=== PATIENT | female | born 1950 | race Caucasian/White ===

== ENCOUNTER 2018-12-27 12:06 | Observation (INO) | payer MEDICARE, OTHER ==
[~2018-12-27] VITALS: Ht 167.6 cm; Wt 81.7 kg
[2018-12-27 12:35] LABS: BASOPHILS ABSOLUTE AUTO 0.05 K/mm3 (0.00-0.23); BASOPHILS PERCENT AUTO 1 % (0-2); EOSINOPHILS ABSOLUTE AUTO 0.28 K/mm3 (0.00-0.68); EOSINOPHILS PERCENT AUTO 5 % (0-6); Hematocrit 41.9 % (33.0-51.0); IMMATURE GRAN ABSOLUTE AUTO 0.01 K/mm3 (0.00-0.10); IMMATURE GRAN PERCENT AUTO 0 % (0-1); LYMPHOCYTES ABSOLUTE AUTO 1.98 K/mm3 (0.84-5.20); LYMPHOCYTES PERCENT AUTO 38 % (21-46); MONOCYTES ABSOLUTE AUTO 0.51 K/mm3 (0.16-1.47); MONOCYTES PERCENT AUTO 10 % (4-13); Mean Corpuscular HGB 29.6 pg (26.0-34.0); Mean Corpuscular HGB Conc 33.4 g/dL (31.5-36.5); Mean Corpuscular Volume 89 fL (80-100); Mean Platelet Volume 9.2 fL (9.1-12.4); NEUTROPHILS ABSOLUTE AUTO 2.38 K/mm3 (1.96-9.15); NEUTROPHILS PERCENT AUTO 46 % (41-73); Platelet Count 341 K/mm3 (150-400); RDW Coefficient Variation 12.6 % (11.7-14.2); RDW Standard Deviation 40.6 fL (35.1-46.3); Red Blood Cell Count 4.73 M/mm3 (3.80-5.20); White Blood Cell Count 5.21 K/mm3 (4.00-11.30)
[2018-12-27] MEDS ORDERED: CELE200 PO (13:19)
[2018-12-27] MEDS ORDERED: ANAS1 PO (13:19)
[2018-12-27] MEDS ORDERED: LEVSOD150 PO (13:19)
[2018-12-27] MEDS ORDERED: OMEPRAZOLE MAGN20 MG PO (13:19)
[2018-12-27] MEDS ORDERED: GUAI600T33 PO (13:20)
[2018-12-27] MEDS ORDERED: ALLEGRA ALLERG180 MG PO (13:21)
[2018-12-27] MEDS ORDERED: Zantac150 MG PO (13:22)
[2018-12-27] MEDS ORDERED: Vitamin D2000 UNIT PO (13:23)
[2018-12-27] MEDS ORDERED: DIPH50 PO (13:23)
[2018-12-27] MEDS ORDERED: MONT10T PO (13:23)
[2018-12-27] MEDS ORDERED: MAGOXI400 PO (13:24)
[2018-12-27] MEDS ORDERED: CALCIUM-MAGNES1 EAC2 PO (13:24)
[2018-12-27] MEDS ORDERED: Meribin5 MG PO (13:25)
[2018-12-27] MEDS ORDERED: Co Q-10100 MG PO (13:25)
[2018-12-27] MEDS ORDERED: TURMERIC500 M2 PO (13:31)
[2018-12-27] MEDS ORDERED: HYALURONIC ACI1 EACH PO (13:32)
[2018-12-27 14:13] LABS: Troponin I <0.015 ng/mL (0.000-0.040)
[2018-12-27 14:14] LABS: Alanine Aminotransfer (ALT/SGP 30 U/L (12-78); Albumin, Blood 3.9 g/dL (3.4-5.0); Albumin/Globulin Ratio 1.2 (0.8-1.8); Alk Phos 60 U/L (50-136); Anion Gap 7 mmol/L (6-16); Aspartate Aminotrans (AST/SGOT 24 U/L (12-37); Bilirubin, Total 0.3 mg/dL (0.1-1.0); Blood Urea Nitrogen 13 mg/dL (8-24); Bun/Creatinine Ratio 12.5 (12.0-20.0); CO2, Blood 24 mmol/L (21-32); Calcium, Blood 8.8 mg/dL (8.5-10.1); Chloride, Blood 107 mmol/L (98-108); Creatinine, Blood 1.04 mg/dL (0.40-1.00); Globulin, Blood 3.2 g/dL (2.2-4.0); Glomerular Filtration Rate 56 (60-); Glucose, Blood 109 mg/dL (70-99); Potassium, Blood 4.4 mmol/L (3.5-5.5); Sodium, Blood 138 mmol/L (136-145); Total Protein, Blood 7.1 g/dL (6.4-8.2)
--- NOTE | 2018-12-27 16:58 | NUR ---
SHIFT SUMMARY PATIENT TO THE FLOOR 1515. PATIENT IS ALERT AND ORIENTED INDEPENENDENT IN THE ROOM. AWAITING FURTHER RESULTS. SHE WILL HAVE A LEXISCAN TOMORROW AND FURTHER RESULTS WILL BE EXPLAINED TO THE PATIENT THEY ARE AVAILABLE. THEY ARE RUNNING 2 MORE TROPONINS AND CK WITH [facility]. WILL ASSESS FOR ANY CHANGES. PATIENTS CURRENT COMPLAINT IS THE HEADACHE FROM THE NITRO TAB GIVEN BY EMS.
[2018-12-27 20:43] LABS: CPK Creatine Kinase 73 U/L (26-193); Troponin I <0.015 ng/mL (0.000-0.040)
[2018-12-27 20:49] LABS: Creatine Kinase MB <1.0 ng/mL (0.0-3.6); Creatine Kinase MB Index Unable to Calculate (0.0-4.0)
--- NOTE | 2018-12-28 04:25 | NUR ---
SHIFT SUMMARY A/O, ABLE TO MAKE NEEDS KNOWN. COOPERATIVE WITH CARE. CALLS AND ANSWERS QUESTIONS APPROPRIATELY. NO C/O PAIN/DISCOMFORT THIS SHIFT. APPEARED TO REST MUCH OF SHIFT. UP INDEPENDENTLY IN ROOM. NO ACUTE CHANGES OVERNIGHT. VSS/AFEBRILE. REQUESTED LAB RESULTS. SHOWED PATIENT LABS AND EXPECTED VALUES AND WHERE HER VALUES FELL. EXPLAINED TO HER THAT IF SHE HAD FURTHER QUESTIONS ABOUT INTERPRETATIONS SHE WOULD NEED TO DISCUSS THAT WITH THE ATTENDING PHYSICIAN. PATIENT NPO @ 0400 EXCEPT MEDS/ICE CHIPS PER ORDER . SCD'S REMAINED IN PLACE. BED IN LOWEST POSITION. CALL LIGHT AND BELONGINGS WITHIN REACH. WCTM. REPORT TO ONCTUAN RN.
[2018-12-28 04:43] LABS: Hemoglobin 13.7 g/dL (11.5-16.0); Mean Corpuscular HGB 29.5 pg (26.0-34.0); Mean Corpuscular HGB Conc 33.4 g/dL (31.5-36.5); Mean Corpuscular Volume 88 fL (80-100); Mean Platelet Volume 9.2 fL (9.1-12.4); Platelet Count 338 K/mm3 (150-400); RDW Coefficient Variation 12.5 % (11.7-14.2); RDW Standard Deviation 40.2 fL (35.1-46.3); Red Blood Cell Count 4.65 M/mm3 (3.80-5.20); White Blood Cell Count 4.94 K/mm3 (4.00-11.30)
[2018-12-28 04:59] LABS: Anion Gap 7 mmol/L (6-16); Blood Urea Nitrogen 14 mg/dL (8-24); Bun/Creatinine Ratio 15.3 (12.0-20.0); CHOL/HDL RATIO 4.5; CO2, Blood 24 mmol/L (21-32); Calcium, Blood 8.7 mg/dL (8.5-10.1); Chloride, Blood 110 mmol/L (98-108); Cholesterol 234 mg/dL (50-200); Creatinine, Blood 0.92 mg/dL (0.40-1.00); Glomerular Filtration Rate >60 (60-); Glucose, Blood 101 mg/dL (70-99); HDL Cholesterol 52 mg/dL (>39); LDL/HDL RATIO 2.9; Low Density Lipoprotein Chol 150 mg/dL (0-110); Potassium, Blood 3.9 mmol/L (3.5-5.5); Sodium, Blood 141 mmol/L (136-145); Triglycerides 158 mg/dL (30-160); Very Low Density Lipoprot Chol 31 mg/dL (6-32)
[2018-12-28 05:01] LABS: CPK Creatine Kinase 78 U/L (26-193); Creatine Kinase MB 1.2 ng/mL (0.0-3.6); Creatine Kinase MB Index 1.5 (0.0-4.0); Troponin I <0.015 ng/mL (0.000-0.040)
[2018-12-28] MEDS ORDERED: Zocor20 MG PO (14:54)
--- NOTE | 2018-12-28 15:15 | NUR ---
SHIFT SUMMARY PT AXO, PLEASANT AND COOPERATIVE WITH CARE. PT EAGER TO BE DISCHARGED HOME. STRESS TEST COMPLETED THIS SHIFT, SEE RESULTS. PT DISCHARGED HOME. PT LEFT ROOM AT 1505 VIA WHEELCHAIR WITH ROLL FORMING SUPERVISOR ESCORT. IV DC'D AND BELONGINGS RETURNED. PT EDUCATED ON NEW MEDICATION AND CHEST PAIN, NON-SPECIFIC. PT AGREES TO ENERGY INFRASTRUCTURE ENGINEER MEDICATION FROM PHARMACY AND FOLLOW UP WITH HER PCP WITHIN A WEEK.
== END 2018-12-28 15:08 | disposition home or self-care (01) ==
LOC: ER 12:06 → MEDS 14:08 → ENPENDDIS 12-28 14:42 → MEDS 12-28 15:08
PROVIDERS: Emergency Medicine; ADMIT Internal Medicine
DX: R07.2 Precordial pain (principal); K21.9 Gastro-esophageal reflux disease without esophagitis; E78.5 Hyperlipidemia, unspecified; E66.9 Obesity, unspecified; G89.4 Chronic pain syndrome; E03.9 Hypothyroidism, unspecified; C50.919 Malignant neoplasm of unspecified site of unspecified female breast; Z98.890 Other specified postprocedural states; Z92.3 Personal history of irradiation; Z88.1 Allergy status to other antibiotic agents; Z88.5 Allergy status to narcotic agent; Z91.041 Radiographic dye allergy status; Z79.899 Other long term (current) drug therapy; Z68.29 Body mass index [BMI] 29.0-29.9, adult
CPT/HCPCS: 36415; 71046; 78452; 80048; 80053; 80061; 82550; 82553; 83036; 84484; 85025; 85027; 93005; 93010; 93017; 99285-25; A9500; J2785; Q0163

== ENCOUNTER → 2021-02-16 | Outpatient (CLI) | payer MEDICARE, OTHER ==
[~2021-02-16] MED LIST: ALLEGRA ALLERG180 MG PO; ANAS1 PO; CALCIUM-MAGNES1 EAC2 PO; CELE200 PO; Co Q-10100 MG PO; DIPH50 PO; GUAI600T33 PO; HYALURONIC ACI1 EACH PO; LEVSOD150 PO; MAGOXI400 PO; MONT10T PO; Meribin5 MG PO; OMEPRAZOLE MAGN20 MG PO; TURMERIC500 M2 PO; Vitamin D2000 UNIT PO; Zantac150 MG PO; Zocor20 MG PO
== END | disposition home or self-care (01) ==
LOC: LAB SHORT 11:14
DX: D36.17 Benign neoplasm of peripheral nerves and autonomic nervous system of trunk, unspecified (principal); D48.5 Neoplasm of uncertain behavior of skin
CPT/HCPCS: 88305